=== PATIENT | female | born 1940 | race Caucasian/White ===

== ENCOUNTER → 2016-08-05 | Outpatient (CLI) | payer MEDICARE, BC ==
[~2016-08-05] MED LIST: ABILIFY; AMARYL PO; AMARYL2 MG PO; ARICEPT 5MG; ATIVAN 1MG T1 MG/TAB PO; ATIVAN1 MG PO; BENADRYL25 M2 PO; BYDUREON IM; CALCIUM CITRATE; CYMBALTA 30MG30 MG; CYMBALTA PO; CYMBALTA30 MG PO; DESYREL 100MG100 MG PO; FAMOTIDINE10 MG PO; FLEXERIL10 MG PO; GLUCOPHAGE; GLUCOPHAGE XR500 M1 PO; GLYBURIDE MICRON3 MG PO; IBUPROFEN; IBUPROFEN200 M2 PO; LAMICTAL 100MG100 MG PO; LAMOTRIGINE100 MG PO; LANTUS100 U/ML SQ; LIPITOR 80MG80 MG PO; LISINOPRIL PO; MASON NATURAL1000 MG PO; MUCINEX1200 MG PO; NATURE'S BLEND500 M1 PO; NUVIGIL150 MG PO; PERCOCET 325 MG1 TA2 PO; PRINIVIL20 MG PO; ROXICODONE5 MG PO; TOPROL XL 50MG50 MG PO; TRAZODONE PO; VITAMIN E 400 U4001 PO; WELLBUTRIN XL150 MG PO; ZETIA10 MG PO; ZOFRAN 4MG T4 MG/TAB PO
== END ==
LOC: BHSO 11:03
DX: F41.1 Generalized anxiety disorder (principal)

== ENCOUNTER → 2017-01-06 | Outpatient (CLI) | payer MEDICARE, BC | LOC: BHSO 10:12 | DX: F41.1 Generalized anxiety disorder (principal) ==

== ENCOUNTER → 2017-03-13 | Outpatient (CLI) | payer MEDICARE, BC | LOC: BHSO 11:07 | DX: F41.1 Generalized anxiety disorder (principal) ==

== ENCOUNTER → 2017-06-09 | Outpatient (CLI) | payer MEDICARE, BC | LOC: SUN.DIA 11:12 | DX: E11.9 Type 2 diabetes mellitus without complications (principal); Z79.4 Long term (current) use of insulin; I10 Essential (primary) hypertension; E66.9 Obesity, unspecified; Z68.32 Body mass index [BMI] 32.0-32.9, adult; Z71.3 Dietary counseling and surveillance | CPT/HCPCS: G0108 ==

== ENCOUNTER → 2017-08-25 | Outpatient (CLI) | payer MEDICARE, BC | LOC: SUN.DIA 03-18 08:53 | DX: E11.9 Type 2 diabetes mellitus without complications (principal); Z79.4 Long term (current) use of insulin; I10 Essential (primary) hypertension; E66.9 Obesity, unspecified; Z71.3 Dietary counseling and surveillance | CPT/HCPCS: G0109 ==

== ENCOUNTER → 2017-11-18 | Outpatient (CLI) | payer MEDICARE, BC | LOC: BHSO 10:52 | DX: F33.41 Major depressive disorder, recurrent, in partial remission (principal) | CPT/HCPCS: G0463 ==

== ENCOUNTER → 2017-11-18 | Outpatient (CLI) | payer MEDICARE, BC ==
[2017-11-18 12:20] LABS: HEMATOCRIT 41.6 % (37.0-47.0); HEMOGLOBIN 14.2 g/dl (12.5-16.0); MEAN CELL VOLUME 97 fl (80.0-100.0); MEAN CORPUSCULAR HEMOGLOBIN 33 pg (27.0-31.0); MEAN CORPUSCULAR HGB CONC 34 g/dl (33.0-37.0); MEAN PLATELET VOLUME 8.2 fl (7.4-10.4); PLATELET COUNT 264 K/mm3 (130-400); REDCELL DISTRIBUTION WIDTH-CV 12.8 % (11.5-14.5)
[2017-11-18 12:41] LABS: ALANINE AMINOTRANSFERASE 32 U/L (9-52); ALBUMIN 4.1 gm/dL (3.5-5.0); ALKALINE PHOSPHATASE 92 U/L (50-136); ANION GAP 18 mmol/L (7-16); AST,SGOT 25 U/L (15-37); BILIRUBIN,TOTAL 0.9 mg/dL (0.0-1.0); BLOOD UREA NITROGEN 14 mg/dL (7-17); CALCIUM 9.2 mg/dL (8.4-10.2); CARBON DIOXIDE 24 mmol/L (22-30); CHLORIDE 97 mmol/L (98-107); CREATININE, serum 0.97 mg/dL (0.52-1.25); GLUCOSE 382 mg/dL (74-106); POTASSIUM 4.3 mmol/L (3.4-5.0); SODIUM 138 mmol/L (137-145); TOTAL PROTEIN 7.8 gm/dL (6.4-8.2)
[2017-11-18 12:50] LABS: TROPONIN-I < 0.012 ng/mL (0.000-0.034)
== END ==
LOC: COL.LAB 11:53
PROVIDERS: Family Medicine
DX: I10 Essential (primary) hypertension (principal); M54.2 Cervicalgia; R00.0 Tachycardia, unspecified

== ENCOUNTER 2018-01-11 13:02 | Emergency (ER) | payer MEDICARE, BC ==
[~2018-01-11] VITALS: Ht 152.4 cm; Wt 70.5 kg
[~2018-01-11 13:02] MED LIST changes: -DESYREL 100MG100 MG PO; +DESYREL DIVIDO150 M1 PO; -GLUCOPHAGE XR500 M1 PO; +GLUCOPHAGE XR750 MG PO; -WELLBUTRIN XL150 MG PO; +WELLBUTRIN XL300 M1 PO
[2018-01-11 13:04] VITALS: BP 108/58; PULSE 77; TEMP 98
[2018-01-11] MEDS ORDERED: CEPHALEXIN500 M1 PO (14:11)
[2018-01-11] MEDS ORDERED: ROXICODONE 55 MG/TAB PO (14:11)
== END 2018-01-11 14:33 | disposition home or self-care (01) ==
LOC: COL.ER 13:02
DX: S62.630B Displaced fracture of distal phalanx of right index finger, initial encounter for open fracture (principal); E11.9 Type 2 diabetes mellitus without complications; Z23 Encounter for immunization; Z79.84 Long term (current) use of oral hypoglycemic drugs; F41.9 Anxiety disorder, unspecified; Z90.89 Acquired absence of other organs; Z98.890 Other specified postprocedural states; Z79.4 Long term (current) use of insulin; W23.0XXA Caught, crushed, jammed, or pinched between moving objects, initial encounter